=== PATIENT | female | born 1955 | race Caucasian/White ===

== ENCOUNTER 2017-02-04 15:52 | Emergency (ER) | payer OTHER ==
[~2017-02-04] VITALS: Ht 157.5 cm; Wt 93.2 kg
[2017-02-04] MEDS ORDERED: NOVOINJ3 (16:02)
[2017-02-04] MEDS ORDERED: ATEN50TA2 (16:02)
[2017-02-04] MEDS ORDERED: LISI20TA3 (16:02)
[2017-02-04] MEDS ORDERED: INSUH10VL (16:02)
[2017-02-04] MEDS ORDERED: GLYB5TA (16:02)
[2017-02-04] MEDS ORDERED: TOUJ1.2I (16:02)
[2017-02-04 17:12] LABS: BASO # 0.1 K/mm3 (0.0-0.2); BASO % 0.7 % (0.0-1.0); EOS # 0.2 K/mm3 (0.0-0.50); EOS % 2.3 % (0.0-3.0); LARGE UNSTAINED CELL # 0.2 K/mm3 (0.0-0.4); LARGE UNSTAINED CELL % 1.7 % (0.0-4.0); LYMPH # 2.1 K/mm3 (1.5-4.5); MEAN CORPUSCULAR HEMOGLOBIN 29.6 pg (27.0-33.0); MEAN CORPUSCULAR HGB CONC 33.6 g/dl (32.0-36.5); MONO # 0.5 K/mm3 (0.0-0.8); MONO % 5.1 % (0.0-5.0); NEUTROPHILS # 6.9 K/mm3 (1.8-7.7); NEUTROPHILS % 69.2 % (36.0-66.0); PLATELET COUNT, AUTOMATED 277 k/mm3 (150-450); RED CELL DISTRIBUTION WIDTH 12.4 % (11.5-14.5); WHITE BLOOD COUNT 9.9 K/mm3 (4.0-10.0)
[2017-02-04] MEDS ORDERED: LIDOCAINE 1% MDV 20ML VIAL As Ordered ONE (17:12)
[2017-02-04 17:28] LABS: ANION GAP 10 MEQ/L (8-16); BLOOD UREA NITROGEN 24 MG/DL (7-18); CALCIUM LEVEL 9.6 MG/DL (8.8-10.2); CARBON DIOXIDE LEVEL 27 MEQ/L (21-32); CHLORIDE LEVEL 98 MEQ/L (98-107); CREATININE FOR GFR 0.75 MG/DL (0.55-1.02); GLOMERULAR FILTRATION RATE > 60.0 (>45); GLUCOSE, FASTING 233 MG/DL (80-110); POTASSIUM SERUM 4.4 MEQ/L (3.5-5.1); SODIUM LEVEL 135 MEQ/L (136-145)
[2017-02-04] MEDS ORDERED: LIDOCAINE 1% MDV 20ML VIAL SC ONE (18:15)
[2017-02-04] MEDS ORDERED: CLEO300C2 PO (19:57)
[2017-02-04] MEDS ORDERED: CLINDAMYCIN 150 MG CAP PO ONE (20:00)
[2017-02-04 20:09] VITALS: BP 177/78
--- NOTE | 2017-02-05 07:50 | CR ---
DATE OF CONSULTATION: 02/04/2017 LOCATION OF CONSULTATION: Emergency department. REASON FOR CONSULTATION: Left breast abscess. HISTORY OF PRESENT ILLNESS: The patient is a pleasant 61-year-old diabetic woman who presented to the emergency department at approximately 04:00 p.m. with a complaint of swelling and redness and tenderness of the left breast. She reports that she had noted the onset of a small area of tenderness on the far medial aspect of the left breast about a week ago. This has gradually been worsening since this began. She has not had any definite fevers or chills. The discomfort has increased. She has not had any drainage. She denies any history of prior breast infection. She has had no history of recent skin infection. In the emergency department, she was evaluated with laboratory studies that showed a white count of 9.9 with a differential showing 69% neutrophils and 21% lymphocytes. She had an ultrasound obtained that showed a subcutaneous collection consistent with an abscess. I was consulted to evaluate the patient and possibly drain the abscess. ALLERGIES: The patient reports an allergy to PENICILLIN. CURRENT MEDICATIONS: Include: - atenolol 50 mg by mouth daily - glyburide - insulin - lisinopril - hydrochlorothiazide - Toujeo MEDICAL HISTORY: Significant for diabetes mellitus. She is a nonsmoker. She apparently has a history of hypertension. She has hypercholesterolemia. She apparently has a history of anal cancer based on review of a previous record. SURGICAL HISTORY: Significant for dilation and curettage (D C). She has had a colonoscopy as recently as 2012. Physical exam reveals a pleasant, alert woman appearing I think older than her stated age of 61 years. She is moderately obese. Skin is warm and dry. Sclerae are anicteric. The patient is alert and oriented. Examination of the left breast reveals that at the far medial aspect of the breast is an area approximately 6 cm long x 3 cm wide of induration and inflammation. Extending laterally from this about to the area of the areola is a narrow area of mild erythema. In the medial breast, there is a small pale area about 2 cm in diameter at the medial most part of her area of induration. There is no imminent skin breakdown evident. The area is tender. Laboratory study is as noted previously. She had a basic medical profile that showed a glucose of 233. The ultrasound was consistent with an abscess. IMPRESSION: Left breast abscess. PLAN: The patient was counseled for incision and drainage of her abscess. She was counseled that she would have a definite small scar. I advised her that this was necessary to prevent progression of her infection. There is a small risk of bleeding, continued infection, or adverse reaction to local anesthesia. She desires to proceed. The area of the breast was therefore prepped with Betadine and local anesthesia was achieved with 1% Xylocaine. An approximately 3 cm transverse incision was made and deepened into the subcutaneous tissues. A large amount of purulent fluid with some blood was released. At the medial most extent of the infection, there was some debris suggestive of a ruptured epidermal inclusion cyst. Much of the debris was removed but the cyst wall was not completely resected. Once the abscess had been nicely drained, the cavity was wicked with some Betadine gauze and a bulky bandage was applied. A Culturette was obtained from the wound. The patient tolerated the procedure well. She was instructed in local wound care. I discussed with the PA in the minor treatment area that the patient should be discharged home on some antibiotics. I advised the patient to remove the gauze wick in the morning in the shower and then to continue to shower the wound daily and to wash with soap and water and apply a dry dressing. She should follow up in my office in about a week for a wound check. JOHN
--- NOTE | 2017-02-05 09:29 | REP ---
FOCUSED LEFT BREAST SONOGRAPHY: HISTORY: Question abscess. FINDINGS: Scanning in the red palpable area at 10-o'clock position in the left breast demonstrates a complex fluid collection measuring 4.6 x 2.2 x 3.0 cm compatible with abscess. IMPRESSION: Hypoechoic fluid collection compatible with abscess left breast 4.6 cm in greatest diameter. Signed by Jovanny Boggs MD 02/05/2017 04:01 P
== END 2017-02-04 20:14 | disposition home or self-care (01) ==
LOC: M ED 15:52
DX: N61.1 Abscess of the breast and nipple (principal); B96.89 Other specified bacterial agents as the cause of diseases classified elsewhere; I10 Essential (primary) hypertension; F41.9 Anxiety disorder, unspecified; E11.9 Type 2 diabetes mellitus without complications; Z79.4 Long term (current) use of insulin; Z79.899 Other long term (current) drug therapy; Z88.0 Allergy status to penicillin; Z85.038 Personal history of other malignant neoplasm of large intestine

== ENCOUNTER 2018-01-18 22:05 | Emergency (ER) | payer OTHER ==
[2018-01-19] MEDS ORDERED: NAPROXEN 250 MG TAB PO
[2018-01-19] MEDS ORDERED: METHOCARBAMOL 500 MG TAB PO
== END 2018-01-19 00:27 | disposition home or self-care (01) ==
LOC: M ED 22:05
DX: S09.90XA Unspecified injury of head, initial encounter (principal); S40.021A Contusion of right upper arm, initial encounter; S50.11XA Contusion of right forearm, initial encounter; S80.01XA Contusion of right knee, initial encounter; W01.198A Fall on same level from slipping, tripping and stumbling with subsequent striking against other object, initial encounter; Y92.89 Other specified places as the place of occurrence of the external cause; E11.9 Type 2 diabetes mellitus without complications; I10 Essential (primary) hypertension; Z79.4 Long term (current) use of insulin; Z79.899 Other long term (current) drug therapy; Z87.891 Personal history of nicotine dependence; Z88.0 Allergy status to penicillin; Z88.8 Allergy status to other drugs, medicaments and biological substances
CPT/HCPCS: 70450

== ENCOUNTER 2018-12-15 16:42 | Emergency (ER) | payer OTHER ==
[~2018-12-15] VITALS: Ht 157.5 cm; Wt 98.1 kg
[~2018-12-15 16:42] MED LIST: ATEN50TA2 PO; CLEO300C2 PO; GLYB5TA PO; INSUH10VL; LISI20TA3 PO; NAPR-837 PO; NOVOINJ3; ROBA500T PO; TOUJ1.2I
[2018-12-15 18:18] LABS: INFLUENZA A AMPLIFICATION NEGATIVE (NEGATIVE); INFLUENZA B AMPLIFICATION NEGATIVE (NEGATIVE)
--- NOTE | 2018-12-15 19:05 | REP ---
Clinical: Cough and shortness of breath. Technique: PA and lateral. Comparison: 07/04/2008. Findings: Mediastinum and cardiac silhouette are normal. No focal consolidation. No effusion. No pneumothorax. Trace basilar atelectasis cannot be excluded. Skeletal structures are intact. Impression: No focal consolidation. Electronically Signed by Elias Black MD 12/15/2018 06:57 P
[2018-12-15] MEDS ORDERED: TESS100C PO (19:42)
[2018-12-15] MEDS ORDERED: MUCI600T31 PO (19:42)
[2018-12-15] MEDS ORDERED: ERYT1OIN26 OP (19:42)
[2018-12-15] MEDS ORDERED: ERYTHROMYCIN OPHTH OINT OU ONE (19:45)
[2018-12-15] MEDS ORDERED: BENZONATATE 100 MG CAP PO ONE (19:45)
[2018-12-15 19:58] VITALS: BP 188/79
[2018-12-15] MEDS ORDERED: guaiFENesin ER 600 MG TAB PO SCH (21:00)
== END 2018-12-15 20:12 | disposition home or self-care (01) ==
LOC: M ED 16:42
DX: J40 Bronchitis, not specified as acute or chronic (principal); H10.9 Unspecified conjunctivitis; E11.9 Type 2 diabetes mellitus without complications; I10 Essential (primary) hypertension; F41.9 Anxiety disorder, unspecified; Z79.899 Other long term (current) drug therapy; Z79.82 Long term (current) use of aspirin; Z79.4 Long term (current) use of insulin; Z88.0 Allergy status to penicillin; Z88.8 Allergy status to other drugs, medicaments and biological substances

== ENCOUNTER 2018-12-19 12:00 | Inpatient (IN) | payer OTHER ==
[~2018-12-19] VITALS: Ht 157.5 cm; Wt 92.6 kg
[~2018-12-19 12:00] MED LIST changes: +ERYT1OIN26 OP; +MUCI600T31 PO; +TESS100C PO
[2018-12-19] MEDS ORDERED: DOCU-129 PO (12:27)
[2018-12-19] MEDS ORDERED: DOXY-350 PO (12:27)
[2018-12-19] MEDS ORDERED: ASPI81TA26 PO (12:27)
[2018-12-19] MEDS ORDERED: NS IV ONE (12:45)
[2018-12-19] MEDS ORDERED: DILUENT IV ONE (12:45)
[2018-12-19 12:59] LABS: VENOUS BASE EXCESS 4.2 (-2.0-2.0); VENOUS HCO3 33.1 MEQ/L (23.0-27.0); VENOUS PARTIAL PRESSURE CO2 71.8 mmHg (38.0-50.0); VENOUS PH 7.282 UNITS (7.330-7.430); VENOUS STANDARD HCO3 27.4 MEQ/L; VENOUS TOTAL CO2 35.3 MEQ/L (24.0-28.0)
[2018-12-19 13:05] LABS: HEMATOCRIT 39.8 % (36.0-47.0); HEMOGLOBIN 12.4 g/dl (12.0-15.5); MEAN CORPUSCULAR HEMOGLOBIN 28.5 pg (27.0-33.0); MEAN CORPUSCULAR HGB CONC 31.2 g/dl (32.0-36.5); MEAN CORPUSCULAR VOLUME 91.5 fl (80.0-96.0); PLATELET COUNT, AUTOMATED 307 10^3/uL (150-450); RED BLOOD COUNT 4.35 10^6/uL (4.00-5.40); WHITE BLOOD COUNT 9.5 10^3/uL (4.0-10.0)
--- NOTE | 2018-12-19 13:14 | REP ---
Portable chest x-ray: Single view. History: Diabetic ketoacidosis. Comparison study: December 15, 2018. Findings: Today's radiograph is exposed at a somewhat lesser level of inspiration. There is a large skin fold projecting over the right chest. The lungs are symmetrically aerated. No infiltrate is seen. No pleural effusion is noted. Impression: Low level of inspiration. No acute disease. Electronically Signed by Jovanny Boggs MD 12/19/2018 01:06 P
[2018-12-19] MEDS ORDERED: DOCU100C17 PO (13:21)
[2018-12-19] MEDS ORDERED: DIMEELX PO (13:21)
[2018-12-19] MEDS ORDERED: BASA100I SC (13:21)
[2018-12-19] MEDS ORDERED: ACET-683 PO (13:21)
[2018-12-19] MEDS ORDERED: ERYT1OIN26 OU (13:21)
[2018-12-19] MEDS ORDERED: MUCI600T31 PO (13:21)
[2018-12-19] MEDS ORDERED: ADME100I SC (13:21)
[2018-12-19] MEDS ORDERED: DOXY100C PO (13:21)
[2018-12-19 13:33] LABS: ATYPICAL LYMPH 1 % (0-5); BASOPHILS 2 % (0-4); EOSINOPHILS 1 % (0-5); LYMPHOCYTES 26 % (16-52); METAMYELOCYTES 3 % (0-0); MONOCYTES 4 % (0-8); MYELOCYTES 1 % (0-0); NEUTROPHILS 61 % (35-75); PLATELET ESTIMATE NORMAL (NORMAL)
[2018-12-19 13:35] LABS: ACETONE/KETONE 1.76 MG/DL (<2.81); ALBUMIN 2.9 GM/DL (3.2-5.2); ALT/SGPT 23 U/L (12-78); BILIRUBIN,DIRECT 0.1 MG/DL (0.0-0.2); BILIRUBIN,TOTAL 0.3 MG/DL (0.2-1.0); BLOOD UREA NITROGEN 20 MG/DL (7-18); CALCIUM LEVEL 9.1 MG/DL (8.8-10.2); CARBON DIOXIDE LEVEL 34 MEQ/L (21-32); CHLORIDE LEVEL 97 MEQ/L (98-107); CPK CREATINE PHOSPHOKINASE 89 U/L (26-192); CREATININE FOR GFR 0.59 MG/DL (0.55-1.30); ETHYL ALCOHOL (ETHANOL) < 0.003 % (0.000-0.010); GLOMERULAR FILTRATION RATE > 60.0 (>45); GLUCOSE, FASTING 117 MG/DL (70-100); LIPASE 151 U/L (73-393); MAGNESIUM LEVEL 1.9 MG/DL (1.8-2.4); MB/CK RELATIVE INDEX 1.57 (< OR =4); SODIUM LEVEL 138 MEQ/L (136-145); TOTAL PROTEIN 7.5 GM/DL (6.4-8.2); TROPONIN I < 0.02 NG/ML (< 0.10)
[2018-12-19 13:42] LABS: HEMOGLOBIN A1c 9.3 %; OSMOLALITY SERUM 297 MOSM/KG (280-301)
[2018-12-19 14:25] LABS: AMPHETAMINES LEVEL URINE NEGATIVE (NEGATIVE); BARBITURATES URINE NEGATIVE (NEGATIVE); BENZODIAZEPINES URINE NEGATIVE (NEGATIVE); CANNABINOIDS URINE NEGATIVE (NEGATIVE); COCAINE METABOLITE URINE NEGATIVE (NEGATIVE); METHADONE URINE NEGATIVE (NEGATIVE); OPIATES URINE NEGATIVE (NEGATIVE); PHENCYCLIDINE URINE NEGATIVE (NEGATIVE)
[2018-12-19] MEDS ORDERED: guaiFENesin DM LIQ 10ML UD PO PRN (16:00)
[2018-12-19] MEDS ORDERED: GLUCAGON FOR INJ 1 MG VIAL (J1610) SC PRN (16:00)
[2018-12-19] MEDS ORDERED: DOCUSATE SODIUM 100 MG CAP PO PRN (16:00)
[2018-12-19] MEDS ORDERED: GLUCOSE 4 GM CHEW TABLET PO PRN (16:00)
[2018-12-19] MEDS ORDERED: DEXTROSE 50% 50 ML SYRINGE IV PRN (16:00)
--- NOTE | 2018-12-19 16:19 | HPEPDOC ---
General Date of Admission December 19, 2018 at 14:55 Date of Service: December 19, 2018 Chief Complaint The patient is a 63-year-old female admitted with a reason for visit of Acute Metabolic Encephalopathy Due To Hypoglycemia. Source: Patient, Other (Friends) History of Present Illness Patient is a 63-year-old female with a history of diabetes mellitus type 2 on home insulin long-term who presents to the hospital for concerns regarding altered mentation as well as low fingerstick glucose. The patient reports her blood glucometer has not been working for a while now. She has continued to take her home Basaglar insulin as well as Admalog insulin - she reports she usually takes 8 units of the long-acting and 10-12 units before meals of the short- acting insulin. She reports she has been taking the short-acting insulin based on how she feels as the glucometer has not been working. The patient has been dealing with an upper respiratory infection ongoing for about 10 days. The patient was seen in the emergency room on 12/15/18at that time she was diagnosed as having bronchitis as well as bacterial conjunctivitis and discharged home on oral doxycycline as well as erythromycin eye ointment. The patient reports that her appetite has not been good secondary to the infection. She ate about 50% of her meal last night. She reports shortness of breath related to the bronchitis associated with cough productive of thick whitish/yellowish/greenish sputum and also reports associated low-grade fevers, chills and sweats but no chest pain. She does have history of irritable bowel syndrome and has been having more of the diarrhea recently. She alternates between diarrhea and constipation. This morning, her friend reports that the patient was okay when she saw her at 8 AM. Hour 15 minutes later, the patient had reported some shortness of breath related to her bronchitis. The friend noticed that the patient was acting strange and her eyes were "not focusing well". Urine concerns regarding this, the friend had called another friend Nimo who is also a nurse. Nimo came over and assess the patient and recommended that the patient come to the hospital for further evaluation. The patient had a hard time changing her clothes to come to the hospital. Thereafter, EMS was called - the friend reports that the patient's fingerstick was 53 when seen by EMS. She was given some crackers with peanut butter and jelly as well as some juice. She was thereafter brought to the ER. In the ER, the patient had a blood glucose of 117, but a rectal temperature of 91F. The patient was started on a ame hugger and given IV hydration. Repeat fingerstick was better. The patient's mentation improved and seems to be back to baseline. No obvious was of infection was identified after workup in the ER. Admission was requested for further evaluation and management. Home Medications Scheduled Aspirin (Aspirin EC) 81 Mg Tablet.dr, 81 MG PO DAILY, (Reported) Atenolol (Atenolol) 50 Mg Tab, 50 MG PO DAILY, (Reported) Doxycycline Hyclate (Doxycycline Hyclate) 100 Mg Capsule, 100 MG PO BID, (Reported) FILLED 12/17 FOR 10 DAYS Erythromycin Base (Erythromycin) 1 Gm Oint...g., 1 APLCT OU BID, (Reported) STARTED 12/16 FOR 7 DAYS Glyburide (Glyburide) 5 Mg Tab, 5 MG PO BID, (Reported) Guaifenesin (Mucinex) 600 Mg Tab.er.12h, 600 MG PO BID, (Reported) Insulin Glargine,Hum.rec.anlog (Basaglar Kwikpen U-100) 100 Unit/1 Ml Insuln.pen, 80 UNIT SC DAILY, (Reported) Insulin Lispro (Admelog) 100 Unit/1 Ml Vial, 1 DOSE SC AC, (Reported) PER SLIDING SCALE Lisinopril/Hydrochlorothiazide (Lisinopril-Hctz 20-25 mg Tab) 1 Tab Tab, 1 TAB PO DAILY, (Reported) Scheduled PRN Acetaminophen (Acetaminophen) 500 Mg Tablet, 1,000 MG PO Q6H PRN for PAIN, (Reported) Brompheniram/Phenylephrine/Dm (Dimetapp Cold-Cough Liquid) 118 Ml Solution, 1 DOSE PO Q6H PRN for COUGH, (Reported) Docusate Sodium (Docusate Sodium) 100 Mg Capsule, 100 MG PO DAILY PRN for CONSTIPATION, (Reported) Allergies Coded Allergies: Penicillins (Verified Allergy, Mild, 12/15/18) rash gemfibrozil (Verified Adverse Reaction, Mild, 12/15/18) feet swelling Past Medical History Medical History Hypertension, hyperlipidemia, obesity, diabetes mellitus type 2, left breast abscess in 2017, bacterial conjunctivitis, viral bronchitis, right arm contusion, previous closed head injury in December 2017, anxiety, irritable bowel syndrome, ventral hernia, anal cancer status post radiation and chemotherapy over 5 years ago now resolved Surgical History D&C Family History Mom had breast cancer, lymphoma, diabetes mellitus and hypertension; dad had diabetes and hypertension Social History * Smoker: Denies Alcohol: occationally Drugs: denies Has a cane and walker to ambulate. Lives with a friend. A-FIB/CHADSVASC A-FIB History Current/History of A-Fib/PAF?: No Review of Systems Other systems Negative for 10 systems except as noted under history of present illness Physical Examination General Exam: Positive: Alert, Cooperative, No Acute Distress Eye Exam: Positive: PERRLA ENT Exam: Positive: Mucous membr. moist/pink Chest Exam: Positive: Clear to auscultation, Normal air movement; Negative: Rales, Rhonchi, Wheezing Heart Exam: Positive: Rate Normal, Regular Rhythm, Normal S1, Normal S2 Abdomen Exam: Positive: Soft; Negative: Tenderness Extremity Exam: Positive: Other (bilateral lower extremity 1+ pitting edema) Skin Exam: Negative: Rash Neuro Exam: Positive: Other (awake, alert, oriented 3. Cranial nerves II12 intact. Intact [id number] test bilaterally. No pronator drift. Strength 5 over 5 in bilateral upper and lower extremities. Intact fine touch bilaterally. Gait was not tested.) Psych Exam: Positive: Mental status NL Vital Signs Vital Signs Date Time Temp Pulse Resp B/P (MAP) Pulse Ox O2 Delivery O2 Flow Rate FiO2 12/19/18 14:35 94.8 152/65 (94) 12/19/18 14:31 54 98 12/19/18 12:20 16 Room Air Laboratory Data Labs 24H Laboratory Tests 2 12/19/18 12:46: Immature Granulocyte % (Auto) , Nucleated Red Blood Cells % (auto) 0.0, Neutrophils 61, Band Neutrophils 1, Lymphocytes (Manual) 26, Monocytes (Manual) 4, Eosinophils (Manual) 1, Basophils (Manual) 2, Metamyelocytes 3H, Myelocytes 1H, Atypical Lymphocytes 1, Platelet Estimate NORMAL, Red Blood Cell Morphology NORMAL, Urine Color YELLOW, Urine Appearance CLEAR, Urine pH 5.0, Urine Specific [place] 1.012, Urine Protein 3+H, Urine Glucose (UA) NEGATIVE, Urine Ketones NEGATIVE, Urine Blood NEGATIVE, Urine Nitrite NEGATIVE, Urine Bilirubin NEGATIVE, Urine Urobilinogen 0.2, Urine Leukocyte Esterase NEGATIVE, Urine WBC (Auto) 3, Urine RBC (Auto) 5H, Urine Hyaline Casts (Auto) 5, Urine Bacteria (Auto) NEGATIVE, Urine Squamous Epithelial Cells 0, Urine Amorphous Sediment SMALLH, Urine Mucus (Auto) SMALL, Urine Sperm (Auto) , Blood Gas Bicarbonate Standard 27.4, Venous Blood pH 7.282L, Venous Blood Partial Pressure CO2 71.8H, Venous Blood Partial Pressure O2 38.0, Venous Blood Total Carbon Dioxide 35.3H, Venous Blood HCO3 33.1H, Venous Blood Oxygen Saturation 63.0, Venous Blood Base Excess 4.2H, Anion Gap 7L, Glomerular Filtration Rate > 60.0, Estimated Mean Plasma Glucose 220H, Hemoglobin A1c 9.3, Osmolality 297, Lactic Acid Level 1.0, Calcium Level 9.1, Magnesium Level 1.9, Aspartate Amino Transf (AST/SGOT) 27, Alanine Aminotransferase (ALT/SGPT) 23, Alkaline Phosphatase 247H, Total Bilirubin 0.3, Direct Bilirubin 0.1, Ammonia < 10, Total Creatine Kinase 89, Creatine Kinase MB 1.0, Creatine Kinase MB Relative Index 1.57, Troponin I < 0.02, Total Protein 7.5, Albumin 2.9L, Albumin/Globulin Ratio 0.63L, Lipase 151, Thyroid Stimulating Hormone (TSH) 2.970, Urine Amphetamines Screen NEGATIVE, Urine Benzodiazepines Screen NEGATIVE, Urine Opiates Screen NEGATIVE, Urine Methadone Screen NEGATIVE, Urine Barbiturates Screen NEGATIVE, Urine Phen cyclidine Screen NEGATIVE, Urine Cocaine Metabolite Screen NEGATIVE, Urine Cannabinoids Screen NEGATIVE, Ethyl Alcohol Level < 0.003, B-Hydroxybutyrate 1.76 12/19/18 12:54: Bedside Glucose (Misc Panel) 124H CBC/BMP Laboratory Tests 12/19/18 12:46 Red Blood Count 4.35, Mean Corpuscular Volume 91.5, Mean Corpuscular Hemoglobin 28.5, Mean Corpuscular Hemoglobin Concent 31.2 L, Red Cell Distribution Width 12.0 Microbiology Microbiology 12/19/18 Blood Culture, Received Pending 12/19/18 Blood Culture, Received Pending 12/19/18 Gastrointestinal Tract Panel (PCR), Received Pending RAD Interpretation STUDY: CXR (no acute infiltrates/no acute findings) Assessment/Plan Poor lady EKG personally reviewedshows sinus bradycardia and, QTC prolonged at 526 ms Acute metabolic encephalopathy secondary to hypoglycemia in setting of diabetes mellitus type 2 on long-term insulin: -As noted, patient's glucometer had not been working but patient has still been taking both long-acting and short-acting insulin without monitoring fingersticks -this likely caused the problem with hypoglycemia in setting of decreased appetite in setting of upper respiratory infection -Hold Basaglar for now -Sliding scale insulin alone -Hold glyburide -Fingersticks are doing better -Patient has been ordered oral diet -Monitor fingersticks every 1 hour for 2 times than every 2 hours for 2 times than before meals at bedtime -Case management/social work consultation to ensure patient has a glucometer and also to assess regarding patient's home safety Severe hyperthermia: -Rectal temperature was 91F on presentation -Improving with Ame gross Hypertension: -Continue lisinopril/HCTZ with holding parameters Acute bronchitis: -Continue doxycyclinepatient had 2 days treatment. Continue 3 more days. -Continue when necessary guaifenesin Acute bacterial conjunctivitis: -Continue ophthalmic erythromycin eye ointment for 5 more days to finish 1 week treatment Edema in lower extremities: -Check echocardiogram Bradycardia secondary to hypothermia: -Improved QTC prolongation: -Potassium and magnesium were normal. Monitor on telemetry. Recheck in a.m. - EKG ordered for morning Generalized weakness: -PT/OT evaluation IBS: -When necessary docusate DVT prophylaxis: -Enoxaparin CODE STATUS: -Full code per my discussion with the patient although she does not wish for prolonged support but his acute short-term life support. Disposition: -Admit to ICU. Anticipated length of stay more than 2 midnights. Anticipate eventual discharge home once medically stable. Plan / VTE VTE Prophylaxis Ordered?: Yes CARLOTA HENAO MD December 19, 2018 16:19
[2018-12-19] MEDS: HumaLOG INSULIN (NovoLOG) PER UNIT SC SCH ×2 (17:30→20:29)
[2018-12-19 18:43] VITALS: BP 122/91
[2018-12-19 20:00] VITALS: BP 174/82
[2018-12-19] MEDS: guaiFENesin ER 600 MG TAB PO SCH (20:28)
[2018-12-19] MEDS: ERYTHROMYCIN OPHTH OINT OU SCH (20:28)
[2018-12-19] MEDS: DOXYCYCLINE HYCLATE 100 MG TAB PO SCH (20:28)
[2018-12-19] MEDS: ENOXAPARIN 40 MG/0.4 ML SYRINGE (J1650) SC SCH (20:29)
--- NOTE | 2018-12-19 22:30 | ECGEPIP ---
[facility] - ED Test Date: 2018-12-19 Pat Name: OXANA MCADAMS Department: Room: - Gender: Female [employer] Salesperson: INDRA : 1955 Requested By: ROBERT Geller Order Number: [id number] Reading MD: Robles Pearce Measurements Intervals [place] Rate: 49 P: 70 IN: 160 QRS: QRSD: 102 T: 37 QT: 556 QTc: 504 Interpretive Statements SINUS BRADYCARDIA MODERATE INTRAVENTRICULAR CONDUCTION DELAY POOR R WAVE PROGRESSION NO PRIORS FOR COMPARISON PROLONGED QT INTERVAL Electronically Signed on 12-19-2018 22:29:37 EDT by Robles Pearce
[2018-12-20] VITALS: BP 136/86
[2018-12-20] MEDS ORDERED: hydroCHLOROthiazide 25 MG TAB PO ONE ×2 (01:45→09:00)
[2018-12-20] MEDS ORDERED: LISINOPRIL 20 MG TAB PO ONE (01:45)
[2018-12-20 03:30] VITALS: BP 142/68
[2018-12-20 04:00] LABS: HEMATOCRIT 35.3 % (36.0-47.0); HEMOGLOBIN 11.1 g/dl (12.0-15.5); MEAN CORPUSCULAR HEMOGLOBIN 28.6 pg (27.0-33.0); MEAN CORPUSCULAR HGB CONC 31.4 g/dl (32.0-36.5); PLATELET COUNT, AUTOMATED 297 10^3/uL (150-450); RED BLOOD COUNT 3.88 10^6/uL (4.00-5.40); WHITE BLOOD COUNT 8.4 10^3/uL (4.0-10.0)
[2018-12-20 04:26] LABS: ALBUMIN 2.2 GM/DL (3.2-5.2); ALT/SGPT 19 U/L (12-78); BILIRUBIN,TOTAL 0.2 MG/DL (0.2-1.0); BLOOD UREA NITROGEN 15 MG/DL (7-18); CALCIUM LEVEL 8.7 MG/DL (8.8-10.2); CARBON DIOXIDE LEVEL 32 MEQ/L (21-32); CHLORIDE LEVEL 105 MEQ/L (98-107); CREATININE FOR GFR 0.53 MG/DL (0.55-1.30); GLOMERULAR FILTRATION RATE > 60.0 (>45); GLUCOSE, FASTING 127 MG/DL (70-100); MAGNESIUM LEVEL 1.8 MG/DL (1.8-2.4); POTASSIUM SERUM 3.9 MEQ/L (3.5-5.1); SODIUM LEVEL 143 MEQ/L (136-145); TOTAL PROTEIN 6.8 GM/DL (6.4-8.2)
[2018-12-20 06:00] VITALS: BP 138/74
[2018-12-20] MEDS: HumaLOG INSULIN (NovoLOG) PER UNIT SC SCH ×4 (07:30→20:30)
[2018-12-20] MEDS: ASPIRIN 81 MG ENTERIC TAB PO SCH (09:29)
[2018-12-20] MEDS: DOXYCYCLINE HYCLATE 100 MG TAB PO SCH ×2 (09:29→20:25)
[2018-12-20] MEDS: guaiFENesin ER 600 MG TAB PO SCH ×2 (09:29→20:25)
[2018-12-20] MEDS: LISINOPRIL 20 MG TAB PO SCH (09:30)
[2018-12-20] MEDS: ATENOLOL 50 MG TAB PO SCH (09:30)
[2018-12-20] MEDS: ERYTHROMYCIN OPHTH OINT OU SCH ×2 (09:31→20:26)
[2018-12-20] MEDS ORDERED: **hydrALAZINE HCL** 25 MG TAB PO PRN (10:00)
[2018-12-20] MEDS: LEVEMIR (INSULIN DETEMIR) 1 UNITS/0.01ML SC SCH (10:55)
[2018-12-20 14:00] VITALS: BP 141/64
[2018-12-20] MEDS: ACETAMINOPHEN 500 MG TAB PO PRN (14:47)
--- NOTE | 2018-12-20 16:35 | IPNPDOC ---
Subjective Date Seen The patient was seen on 12/20/18. Subjective Chief Complaint/HPI Altered mentation/acute metabolic encephalopathy secondary to hypoglycemia, hypothermia Events since last encounter The patient reports she is feeling better today. She was up in the chair when I saw him earlier this morning. Reports her appetite is much better as wellate most of her breakfast. Denies any problems with chest pressure or shortness of breath. No nausea or vomiting. Reports her cough is improving although still has some cough related to her recent bronchitis. Denies abdominal pain. No problems with urinationdoes report some persistent diarrhea still - reports she had about 5 bowel movements that were loose yesterdayreports while she does have several loose bowel movements related to her IBS, this is a little more than usual. No blood in her stools. Objective Physical Examination General Exam: Positive: Alert, Cooperative, No Acute Distress, Other (sitting up in chair) Eye Exam: Positive: PERRLA ENT Exam: Positive: Mucous membr. moist/pink Chest Exam: Positive: Clear to auscultation, Normal air movement; Negative: Rales, Rhonchi, Wheezing Heart Exam: Positive: Rate Normal, Regular Rhythm, Normal S1, Normal S2 Abdomen Exam: Positive: Soft; Negative: Tenderness Extremity Exam: Positive: Edema (bilateral lower extremity 1+ pitting edema) Neuro Exam: Positive: Other (awake, alert, answering questions appropriately and moving all 4 extremities) Psych Exam: Positive: Mental status NL Assessment /Plan Assessment Acute metabolic encephalopathy secondary to hypoglycemia in setting of diabetes mellitus type 2 on long-term insulin: -Patient's glucometer had not been working but patient has still been taking both long-acting and short-acting insulin without monitoring fingersticks -in addition, patient's appetite was less related to acute bronchitisthe combination likely resulted in the hypoglycemia and hypothermia. -Appetite is better and no further hypoglycemia. Levemir at 35 units daily to start off with -Monitor fingersticks todayif running in the high 200s to 300s, plan will be to give her an additional dose of 35 units of Levemir and switch to 7080 units of Levemir starting tomorrow based on her fingersticks. At baseline, patient takes 80 units of basal insulin. -Continue sliding-scale insulin -Hold glyburide -Continue carbohydrate controlled diet -Case management/social work consultation to ensure patient has a glucometer and also to assess regarding patient's home safety Severe hypothermia: -Rectal temperature was 91F on presentation -Improving with Margarito hugger -Temperature is now normal Hypertension: -Continue lisinopril/HCTZ with holding parameters Acute bronchitis: -Continue doxycyclinepatient had 3 days treatment. Continue 2 more days. -Continue prn guaifenesin Acute bacterial conjunctivitis: -Continue ophthalmic erythromycin eye ointment for 4 more days to finish 1 week treatment Edema in lower extremities: -Check echocardiogram -Suspect edema may be related to her varicosities as well. -Ordered compression stockings Bradycardia secondary to hypothermia: -Resolved QTC prolongation: -Resolvednormal on EKG today Generalized weakness: -PT/OT evaluation IBS: -When necessary docusate - currently patient having diarrhea DVT prophylaxis: -Enoxaparin Disposition: Anticipate possible discharge home within the next 24-48 hours based on patient's fingersticks as well as clinical progression. We will also await echocardiogram and PT/OT recommendations. As noted above, patient also will require case management/elementary school social worker evaluation to ensure she has adequate diabetic supplies, glucometer as well as to ensure home safety. Plan/VTE VTE Prophylaxis Ordered?: Yes VS, I&O, 24H, Fishbone Vital Signs/I&O Vital Signs Date Time Temp Pulse Resp B/P (MAP) Pulse Ox O2 Delivery O2 Flow Rate FiO2 12/20/18 14:00 97.0 65 20 141/64 (89) 96 12/19/18 17:38 Room Air 12/19/18 17:08 2.0 I&O- Last 24 Hours up to 6 AM 12/20/18 06:00 Intake Total 3060 ml Output Total 0 ml Balance 3060 ml Laboratory Data 24H LABS Laboratory Tests 2 12/19/18 17:29: Bedside Glucose (Misc Panel) 111 12/19/18 18:37: Bedside Glucose (Misc Panel) 104 12/19/18 20:26: Bedside Glucose (Misc Panel) 114 12/20/18 00:35: Bedside Glucose (Misc Panel) 84 12/20/18 03:41: Nucleated Red Blood Cells % (auto) 0.0, Anion Gap 6L, Glomerular Filtration Rate > 60.0, Blood Urea Nitrogen 15, Creatinine 0.53L, Sodium Level 143, Potassium Level 3.9, Chloride Level 105, Carbon Dioxide Level 32, Calcium Level 8.7L, Aspartate Amino Transf (AST/SGOT) 23, Alanine Aminotransferase (ALT/SGPT) 19, Alkaline Phosphatase 177H, Total Bilirubin 0.2, Total Protein 6.8, Albumin 2.2#L, Magnesium Level 1.8, Albumin/Globulin Ratio 0.48L 12/20/18 11:58: Bedside Glucose (Misc Panel) 213H CBC/BMP Laboratory Tests 12/20/18 03:41 Red Blood Count 3.88 L, Mean Corpuscular Volume 91.0, Mean Corpuscular Hemoglobin 28.6, Mean Corpuscular Hemoglobin Concent 31.4 L, Red Cell Distribution Width 12.2, Calcium Level 8.7 L, Aspartate Amino Transf (AST/SGOT) 23, Alanine Aminotransferase (ALT/SGPT) 19, Alkaline Phosphatase 177 H, Total Bilirubin 0.2, Total Protein 6.8, Albumin 2.2 #L Microbiology Microbiology 12/19/18 Blood Culture - Preliminary, Resulted No growth after 24 hours . All specim... 12/19/18 Blood Culture - Preliminary, Resulted No growth after 24 hours . All specim... 12/19/18 Gastrointestinal Tract Panel (PCR) - Final, Complete CARLOTA HENAO MD Dec 20, 2018 16:35
[2018-12-20] MEDS: ENOXAPARIN 40 MG/0.4 ML SYRINGE (J1650) SC SCH (20:25)
[2018-12-20 22:00] VITALS: BP 142/68
[2018-12-21 06:00] VITALS: BP 138/64
[2018-12-21 06:06] LABS: HEMATOCRIT 37.4 % (36.0-47.0); HEMOGLOBIN 11.6 g/dl (12.0-15.5); MEAN CORPUSCULAR HEMOGLOBIN 27.7 pg (27.0-33.0); MEAN CORPUSCULAR VOLUME 89.3 fl (80.0-96.0); PLATELET COUNT, AUTOMATED 327 10^3/uL (150-450); RED BLOOD COUNT 4.19 10^6/uL (4.00-5.40); WHITE BLOOD COUNT 9.1 10^3/uL (4.0-10.0)
[2018-12-21 06:26] LABS: BLOOD UREA NITROGEN 20 MG/DL (7-18); CALCIUM LEVEL 9.4 MG/DL (8.8-10.2); CARBON DIOXIDE LEVEL 30 MEQ/L (21-32); CHLORIDE LEVEL 103 MEQ/L (98-107); CREATININE FOR GFR 0.68 MG/DL (0.55-1.30); GLOMERULAR FILTRATION RATE > 60.0 (>45); GLUCOSE, FASTING 164 MG/DL (70-100); MAGNESIUM LEVEL 1.7 MG/DL (1.8-2.4); PHOSPHORUS LEVEL 4.3 MG/DL (2.5-4.9); POTASSIUM SERUM 4.1 MEQ/L (3.5-5.1); SODIUM LEVEL 139 MEQ/L (136-145)
[2018-12-21] MEDS ORDERED: MAG SULF 1GM/100ML (MAG RUN) 1 GM in APPROPRIATE DILUENT 1 EA IV ONE (07:15)
[2018-12-21 07:25] LABS: BASOPHILS 1 % (0-4); EOSINOPHILS 4 % (0-5); LYMPHOCYTES 47 % (16-52); METAMYELOCYTES 3 % (0-0); MONOCYTES 6 % (0-8); MYELOCYTES 1 % (0-0); NEUTROPHILS 37 % (35-75)
[2018-12-21 07:27] LABS: ANISOCYTOSIS 1+; PLATELET ESTIMATE NORMAL (NORMAL); POLYCHROMASIA 1+
[2018-12-21] MEDS: ERYTHROMYCIN OPHTH OINT OU SCH ×2 (08:21→20:11)
[2018-12-21] MEDS: ASPIRIN 81 MG ENTERIC TAB PO SCH (08:21)
[2018-12-21] MEDS: guaiFENesin ER 600 MG TAB PO SCH ×2 (08:21→20:11)
[2018-12-21] MEDS: hydroCHLOROthiazide 25 MG TAB PO SCH (08:22)
[2018-12-21] MEDS: ATENOLOL 50 MG TAB PO SCH (08:22)
[2018-12-21] MEDS: DOXYCYCLINE HYCLATE 100 MG TAB PO SCH ×2 (08:22→20:11)
[2018-12-21] MEDS: LISINOPRIL 20 MG TAB PO SCH (08:22)
[2018-12-21] MEDS: HumaLOG INSULIN (NovoLOG) PER UNIT SC SCH ×4 (08:23→20:36)
[2018-12-21] MEDS: LEVEMIR (INSULIN DETEMIR) 1 UNITS/0.01ML SC SCH (08:24)
--- NOTE | 2018-12-21 10:19 | ECHO ---
DATE OF PROCEDURE: 12/20/2018 INDICATION: Edema. Height 158 cm, weight 94 kg. DIMENSIONS: IVS: 1.1 LV: 4.6 LVPW: 1.3 LA: 4.5 Aorta: 2.9 IVC: 1.9 Left atrial volume index: 38 mL per meter square Mitral E wave velocity: 107 A wave: 85 E prime septal: 7.8 E prime lateral: 9.6 FINDINGS: The study is of acceptable technical quality, especially considering patient's body habitus. Left ventricle is of normal size and systolic function with estimated ejection fraction (EF) 60-65%. Computer-generated left ventricular ejection fraction (LVEF) was 64%. Right ventricle does not appear grossly dilated and is normally contractile. Left atrium is moderately enlarged. Right atrium appears normal. Aortic valve is minimally sclerotic but has three cusps and normal mobility. Mitral, tricuspid and pulmonic valves appear normal. No pericardial effusion is noted. Inferior vena cava is towards upper limits of normal size but collapses with respiration. Aortic root appears normal. Aortic arch and abdominal aorta also appear normal based on limited views. Doppler interrogation reveals trace aortic insufficiency and no stenosis. There is mild mitral and mild tricuspid insufficiency. Calculated pulmonary artery pressure is at minimum in 30s corresponding to mild pulmonary hypertension. Pulmonic valve is functionally competent. CONCLUSIONS: 1. Study is of acceptable technical quality. 2. Normal left ventricular (LV) size with preserved LV systolic function and likely grade 2 diastolic dysfunction. 3. No hemodynamically significant valvular disease. 4. Normal central venous pressure but at least mild and possibly worse pulmonary hypertension. COMMENT: Subacute bacterial endocarditis (SBE) prophylaxis is not recommended.
--- NOTE | 2018-12-21 13:18 | ECGEPIP ---
[facility] Test Date: 2018-12-20 Pat Name: OXANA MCADAMS Department: Room: [place] [address] Gender: Female [employer]: CHILO : 1955 Requested By: CARLOTA Brice Order Number: [id number] Reading MD: Preeti Vargas Measurements Intervals [place] Rate: 75 P: 79 NC: 145 QRS: 24 QRSD: 98 T: 29 QT: 396 QTc: 443 Interpretive Statements SINUS RHYTHM SIMILAR TO 12/19/18, QT INTERVAL IS NOW SHORTER Electronically Signed on 12-21-2018 13:17:54 EDT by Preeti Vargas
--- NOTE | 2018-12-21 13:46 | IPNPDOC ---
Subjective Date Seen The patient was seen on 12/21/18. Subjective Chief Complaint/HPI The patient is a 63-year-old female admitted for acute metabolic encephalopathy secondary to hypoglycemia. The patient has a history diabetes mellitus type 2 on home insulin long-term. Her blood glucometer had not been working for a while now. She continued to take her home Basaglar insulin as well as Admalog insulin - she reports she usually takes 80 units of the long-acting and 10-12 units before meals of the short-acting insulin. She reports she has been taking the short-acting insulin based on how she feels. The patient has been dealing with an upper respiratory infection ongoing for about 10 days - she was seen in the emergency room on 12/15/18 and was diagnosed as having bronchitis as well as bacterial conjunctivitis and discharged home on oral doxycycline as well as erythromycin eye ointment. The patient reporte that her appetite had not been good secondary to the infection. The morning of presentation, the patient's friend noticed that the patient was acting strange and her eyes were "not focusing well". The patient's fingerstick was 53 when seen by EMS. She was given some crackers with peanut butter and jelly as well as some juice. She was thereafter brought to the ER. In the ER, the patient had a blood glucose of 117, but a rectal temperature of 91F. The patient was started on a ame hugger and given IV hydration. Repeat fingerstick was better. The patient's mentation improved and seems to be back to baseline. No obvious was of infection was identified after workup in the ER. Admission was requested for further evaluation and management. Events since last encounter The patient reports she is feeling better. She i staking oral intake okreports her appetite is improved. Denies feeling overtly short of breath. Still has cough associated with the bronchitis - seems to be improving as well although she still has some persistent cough. Denies any fevers/chills or sweats. No nausea or vomiting. No chest pain. No abdominal pain. Has been voiding okay and has been having bowel movements okay. Able to ambulate with assistance of walker. Objective Physical Examination General Exam: Positive: Alert, Cooperative, No Acute Distress, Other (sitting up in chair) Eye Exam: Positive: PERRLA ENT Exam: Positive: Mucous membr. moist/pink Chest Exam: Positive: Other (clear to respiration bilateral. No wheeze, rhonchi. No distress.) Heart Exam: Positive: Other (S1, S2 heard, no rubs or gallops. Regular rate, rhythm.) Abdomen Exam: Positive: Soft; Negative: Tenderness Extremity Exam: Positive: Edema (bilateral lower extremity 1+ pitting edema- unchanged) Neuro Exam: Positive: Other (awake, alert, answering questions appropriately and moving all 4 extremities) Psych Exam: Positive: Mental status NL Assessment /Plan Assessment Acute metabolic encephalopathy secondary to hypoglycemia in setting of diabetes mellitus type 2 on long-term insulin: -Patient's glucometer had not been working but patient was still taking both l don-acting and short-acting insulin without monitoring fingersticks -in addition, patient's appetite was less related to acute bronchitisthe combination likely resulted in the hypoglycemia and hypothermia. -Appetite is better and no further hypoglycemia. -Started Levemir at 35 units daily 12/20/18 morning -Fingersticks 112-178 since yesterday afternoon -I doubt patient would require the 75-80 units of Basaglar she was taking at home -Continue current dose of Levemir as well as sliding-scale insulin -Holding glyburide -Continue carbohydrate controlled diet -Case management/social work consultation has been requested to ensure patient has a glucometer and also to assess regarding patient's home safety Severe hypothermia: -Rectal temperature was 91F on presentation -Improved with Ame hugger treatment initially -Temperature is now normal Hypertension: -Continue lisinopril/HCTZ with holding parameters Acute bronchitis: -Continue doxycyclinepatient had 4 days treatment. Continue 1 more days. -Continue prn guaifenesin Acute bacterial conjunctivitis: -Continue ophthalmic erythromycin eye ointment for 3 more days to finish 1 week treatment Edema in lower extremities: -Check echocardiogram - pending -Suspect edema may be related to her varicosities as well. -Ordered compression stockings Bradycardia secondary to hypothermia: -Resolved QTC prolongation: -Resolvednormal on EKG today Generalized weakness: -PT/OT - patient has been cleared for home discharge once medically stable IBS: -When necessary docusate - currently patient having diarrhea DVT prophylaxis: -Enoxaparin Disposition: Follow-up on echocardiogram. He will also need to check with case management to ensure that patient gets a glucometer for home use. She may also benefit from home nursing as well as possibly a home safety evaluation. Anticipate possible discharge home by tomorrow. Plan/VTE VTE Prophylaxis Ordered?: Yes VS, I&O, 24H, Fishbone Vital Signs/I&O Vital Signs Date Time Temp Pulse Resp B/P (MAP) Pulse Ox O2 Delivery O2 Flow Rate FiO2 12/21/18 08:22 134/64 12/21/18 08:22 75 12/21/18 06:00 98.6 20 98 12/19/18 17:38 Room Air 12/19/18 17:08 2.0 I&O- Last 24 Hours up to 6 AM 12/21/18 06:00 Intake Total 900 ml Balance 900 ml Laboratory Data 24H LABS Laboratory Tests 2 12/20/18 16:50: Bedside Glucose (Misc Panel) 112 12/20/18 20:30: Bedside Glucose (Misc Panel) 137H 12/21/18 05:49: Immature Granulocyte % (Auto) , Nucleated Red Blood Cells % (auto) 0.0, Neutrophils 37, Band Neutrophils 1, Lymphocytes (Manual) 47, Monocytes (Manual) 6, Eosinophils (Manual) 4, Basophils (Manual) 1, Metamyelocytes 3H, Myelocytes 1H, Platelet Estimate NORMAL, Polychromasia 1+, Anisocytosis 1+, Macrocytosis 1+, Anion Gap 6L, Glomerular Filtration Rate > 60.0, Blood Urea Nitrogen 20H, Creatinine 0.68, Sodium Level 139, Potassium Level 4.1, Chloride Level 103, Carbon Dioxide Level 30, Calcium Level 9.4, Phosphorus Level 4.3, Magnesium Level 1.7L 12/21/18 11:33: Bedside Glucose (Misc Panel) 178H CBC/BMP Laboratory Tests 12/21/18 05:49 Red Blood Count 4.19, Mean Corpuscular Volume 89.3, Mean Corpuscular Hemoglobin 27.7, Mean Corpuscular Hemoglobin Concent 31.0 L, Red Cell Distribution Width 12.3, Calcium Level 9.4 Microbiology Microbiology 12/19/18 Blood Culture - Preliminary, Resulted No growth after 24 hours . All specim... 12/19/18 Blood Culture - Preliminary, Resulted No Growth after 48 hours. All Specime... 12/19/18 Gastrointestinal Tract Panel (PCR) - Final, Complete CARLOTA HENAO MD Dec 21, 2018 13:46
[2018-12-21 14:00] VITALS: BP 171/73
[2018-12-21] MEDS: ACETAMINOPHEN 500 MG TAB PO PRN (15:32)
[2018-12-21 18:00] VITALS: BP 142/56
[2018-12-21] MEDS: ENOXAPARIN 40 MG/0.4 ML SYRINGE (J1650) SC SCH (20:11)
[2018-12-21 22:00] VITALS: BP 138/64
[2018-12-22 06:00] VITALS: BP 139/57
[2018-12-22 06:05] LABS: HEMATOCRIT 33.9 % (36.0-47.0); HEMOGLOBIN 10.6 g/dl (12.0-15.5); MEAN CORPUSCULAR HEMOGLOBIN 27.8 pg (27.0-33.0); MEAN CORPUSCULAR HGB CONC 31.3 g/dl (32.0-36.5); PLATELET COUNT, AUTOMATED 290 10^3/uL (150-450); RED BLOOD COUNT 3.81 10^6/uL (4.00-5.40); WHITE BLOOD COUNT 8.3 10^3/uL (4.0-10.0)
[2018-12-22 06:36] LABS: BLOOD UREA NITROGEN 24 MG/DL (7-18); CALCIUM LEVEL 9.3 MG/DL (8.8-10.2); CARBON DIOXIDE LEVEL 28 MEQ/L (21-32); CHLORIDE LEVEL 103 MEQ/L (98-107); CREATININE FOR GFR 0.67 MG/DL (0.55-1.30); GLOMERULAR FILTRATION RATE > 60.0 (>45); GLUCOSE, FASTING 191 MG/DL (70-100); MAGNESIUM LEVEL 1.7 MG/DL (1.8-2.4); PHOSPHORUS LEVEL 4.5 MG/DL (2.5-4.9); SODIUM LEVEL 139 MEQ/L (136-145)
[2018-12-22 06:55] LABS: ATYPICAL LYMPH 1 % (0-5); EOSINOPHILS 2 % (0-5); LYMPHOCYTES 32 % (16-52); METAMYELOCYTES 2 % (0-0); MONOCYTES 7 % (0-8); MYELOCYTES 3 % (0-0); NEUTROPHILS 52 % (35-75); PLATELET ESTIMATE NORMAL (NORMAL)
[2018-12-22] MEDS ORDERED: MAG SULF 1GM/100ML (MAG RUN) 1 GM in APPROPRIATE DILUENT 1 EA IV ONE (07:30)
[2018-12-22] MEDS: HumaLOG INSULIN (NovoLOG) PER UNIT SC SCH ×2 (07:39→11:46)
[2018-12-22] MEDS: guaiFENesin ER 600 MG TAB PO SCH (08:07)
[2018-12-22] MEDS: DOXYCYCLINE HYCLATE 100 MG TAB PO SCH (08:07)
[2018-12-22] MEDS: ASPIRIN 81 MG ENTERIC TAB PO SCH (08:07)
[2018-12-22] MEDS: hydroCHLOROthiazide 25 MG TAB PO SCH (08:07)
[2018-12-22] MEDS: LISINOPRIL 20 MG TAB PO SCH (08:07)
[2018-12-22 08:08] VITALS: BP 169/75
[2018-12-22] MEDS: LEVEMIR (INSULIN DETEMIR) 1 UNITS/0.01ML SC SCH (08:08)
[2018-12-22] MEDS: ERYTHROMYCIN OPHTH OINT OU SCH (08:08)
[2018-12-22] MEDS: ATENOLOL 50 MG TAB PO SCH (08:08)
[2018-12-22] MEDS ORDERED: BLOOKIT21 XX (08:53)
[2018-12-22] MEDS ORDERED: GLUC1TES2 XX (08:53)
[2018-12-22] MEDS ORDERED: ALCOPAD25 TOP (08:53)
[2018-12-22] MEDS ORDERED: LANC30MI XX (08:53)
[2018-12-22] MEDS ORDERED: BASA100I SC (10:31)
--- NOTE | 2018-12-22 11:23 | DS.PDOC ---
Discharge Summary General Date of Admission December 19, 2018 at 14:55 Date of Discharge 12/22/2018 Discharge Summary PROCEDURES PERFORMED DURING STAY: [None]. ADMITTING DIAGNOSES / DISCHARGE DIAGNOSES: Acute metabolic encephalopathy secondary to hypoglycemia in setting of diabetes mellitus type 2 on long-term insulin Severe hypothermia Hypertension Acute bronchitis Acute bacterial conjunctivitis Edema in lower extremities Bradycardia secondary to hypothermia QTC prolongation Generalized weakness IBS DVT prophylaxis COMPLICATIONS/CHIEF COMPLAINT: Confusion HISTORY OF PRESENT ILLNESS: Patient is a 63 year old female with a PMHx of Hypertension, hyperlipidemia, obesity, diabetes mellitus type 2, left breast abscess in 2016, bacterial conjunctivitis, viral bronchitis, right arm contusion, previous closed head injury in December 2017, anxiety, irritable bowel syndrome, ventral hernia, anal cancer status post radiation and chemotherapy over 5 years ago now resolved who presented to the ER with confusion. The patient reports her blood glucometer has not been working for a while now. She has continued to take her home Basaglar insulin as well as Humolog insulin - she reports she usually takes 8 units of the long-acting and 10-12 units before meals of the short-acting insulin. She reports she has been taking the short-acting insulin based on how she feels. Patient was admitted to the hospitalist service for further evaluation / treatment. HOSPITAL COURSE: Acute metabolic encephalopathy secondary to hypoglycemia in setting of diabetes mellitus type 2 on long-term insulin: - Full resolution of confusion - Had taken insulin without measuring glucose because of dysfunctioning equip ment - Has been on adjusted dose of long acting insulin - Will discharge today with instructions to check glucose 4 times daily and sliding scale insulin s/p Severe hypothermia - likely 2/2 hypoglycemia s/p Bradycardia - likely 2/2 hypothermia Hypertension - BP better controlled - c/w lisinopril/HCTZ with holding parameters Acute bronchitis: - Will complete Doxycycline today - c/w prn guaifenesin Acute bacterial conjunctivitis: - c/w ophthalmic erythromycin eye ointment for 3 more days to finish 1 week treatment Edema in lower extremities: - ECHO 12/2018: EF 65%; G2DD, Normal CVP, Mild and possibly worse pulmonary HTN - c/w HCTZ / Lisinopril upon discharge - c/w compression stockings QTC prolongation: -Resolvednormal on EKG today IBS: - c/w Docusate PRN DVT prophylaxis - c/w Enoxaparin DISCHARGE MEDICATIONS: Please see below. ALLERGIES: Please see below. PHYSICAL EXAMINATION ON DISCHARGE: Vitals (See below) General: Lying in bed, no acute distress, comfortable, AAOx3 HEENT: NC, AT CVS: RRR, +S1S2 Lungs: Fair air entry b/l, no appreciable wheezing / rhonchi / rales Abdomen: Soft, ND, NT Extremities: Trace pitting edema, - Calf tenderness LABORATORY DATA: Please see below. ACTIVITY: [As tolerated]. DISCHARGE PLAN: Follow up with Mark Mojica Remain compliant with treatment plan and medications Return to the ER if you experience any problems DISPOSITION: Home with services DISCHARGE CONDITION: [Stable]. TIME SPENT ON DISCHARGE: 40 minutes Vital Signs/I&Os Vital Signs Date Time Temp Pulse Resp B/P (MAP) Pulse Ox O2 Delivery O2 Flow Rate FiO2 12/22/18 08:08 70 169/75 12/22/18 06:00 96.4 18 93 12/19/18 17:38 Room Air 12/19/18 17:08 2.0 I&O- Last 24 Hours up to 6 AM 12/22/18 06:00 Intake Total 1260 ml Output Total 0 ml Balance 1260 ml Laboratory Data Labs 24H Laboratory Tests 2 12/21/18 11:33: Bedside Glucose (Misc Panel) 178H 12/21/18 16:42: Bedside Glucose (Misc Panel) 207H 12/21/18 20:33: Bedside Glucose (Misc Panel) 159H 12/22/18 05:26: Immature Granulocyte % (Auto) , Nucleated Red Blood Cells % (auto) 0.0, Neutrophils 52, Band Neutrophils 1, Lymphocytes (Manual) 32, Monocytes (Manual) 7, Eosinophils (Manual) 2, Metamyelocytes 2H, Myelocytes 3H, Atypical Lymphocytes 1, Platelet Estimate NORMAL, Red Blood Cell Morphology NORMAL, Anion Gap 8, Glomerular Filtration Rate > 60.0, Blood Urea Nitrogen 24H, Creatinine 0.67, Sodium Level 139, Potassium Level 4.0, Chloride Level 103, Carbon Dioxide Level 28, Calcium Level 9.3, Phosphorus Level 4.5, Magnesium Level 1.7L CBC/BMP Laboratory Tests 12/22/18 05:26 Red Blood Count 3.81 L, Mean Corpuscular Volume 89.0, Mean Corpuscular Hemog lobin 27.8, Mean Corpuscular Hemoglobin Concent 31.3 L, Red Cell Distribution Width 12.3, Calcium Level 9.3 FSBS Laboratory Tests Test 12/21/18 11:33 12/21/18 16:42 12/21/18 20:33 Range/Units Bedside Glucose (Misc Panel) 178 207 159 80-115 MG/DL Microbiology Microbiology 12/19/18 Blood Culture - Preliminary, Resulted No Growth after 48 hours. All Specime... 12/19/18 Blood Culture - Preliminary, Resulted No Growth after 48 hours. All Specime... 12/19/18 Gastrointestinal Tract Panel (PCR) - Final, Complete Discharge Medications Scheduled Aspirin (Aspirin EC) 81 Mg Tablet.dr, 81 MG PO DAILY, (Reported) Atenolol (Atenolol) 50 Mg Tab, 50 MG PO DAILY, (Reported) Blood Sugar Diagnostic (Advanced Glucose Test Strips) 1 Each Strip, 1 STRIP XX ASDIRECTED to check glucose 4 times daily Doxycycline Hyclate (Doxycycline Hyclate) 100 Mg Capsule, 100 MG PO BID, (Reported) FILLED 12/17 FOR 10 DAYS Erythromycin Base (Erythromycin) 1 Gm Oint...g., 1 APLCT OU BID, (Reported) STARTED 12/16 FOR 7 DAYS Guaifenesin (Mucinex) 600 Mg Tab.er.12h, 600 MG PO BID, (Reported) Insulin Glargine,Hum.rec.anlog (Basaglar Kwikpen U-100) 100 Unit/1 Ml Insuln.pen, 35 UNIT SC DAILY 1 month supply; 1 PEN Insulin Lispro (Admelog) 100 Unit/1 Ml Vial, 1 DOSE SC AC, (Reported) PER SLIDING SCALE Lisinopril/Hydrochlorothiazide (Lisinopril-Hctz 20-25 mg Tab) 1 Tab Tab, 1 TAB PO DAILY, (Reported) Scheduled PRN Acetaminophen (Acetaminophen) 500 Mg Tablet, 1,000 MG PO Q6H PRN for PAIN, (Reported) Brompheniram/Phenylephrine/Dm (Dimetapp Cold-Cough Liquid) 118 Ml Solution, 1 DOSE PO Q6H PRN for COUGH, (Reported) Docusate Sodium (Docusate Sodium) 100 Mg Capsule, 100 MG PO DAILY PRN for CONSTIPATION, (Reported) Allergies Coded Allergies: Penicillins (Verified Allergy, Mild, 12/15/18) rash gemfibrozil (Verified Adverse Reaction, Mild, 12/15/18) feet swelling AZUL FRIAS MD Dec 22, 2018 11:23
== END 2018-12-22 13:33 | disposition home or self-care (01) | DRG 52 ==
LOC: M ED 12:00 → EDBD 12:00 → M ED INP 14:55 → M ICU 17:22 → M MSPAV 12-20 03:18
PROVIDERS: ADMIT Internal Medicine; ATTEND Internal Medicine
DX: G93.41 Metabolic encephalopathy (principal); E11.649 Type 2 diabetes mellitus with hypoglycemia without coma; I45.81 Long QT syndrome; K58.2 Mixed irritable bowel syndrome; I10 Essential (primary) hypertension; E78.5 Hyperlipidemia, unspecified; E66.9 Obesity, unspecified; F41.9 Anxiety disorder, unspecified; R68.0 Hypothermia, not associated with low environmental temperature; J20.9 Acute bronchitis, unspecified; H10.30 Unspecified acute conjunctivitis, unspecified eye; R00.1 Bradycardia, unspecified; R53.1 Weakness; R60.0 Localized edema; Z92.3 Personal history of irradiation; Z92.21 Personal history of antineoplastic chemotherapy; Z79.4 Long term (current) use of insulin; Z79.82 Long term (current) use of aspirin; Z88.0 Allergy status to penicillin; Z79.899 Other long term (current) drug therapy

== ENCOUNTER → 2019-08-20 | Outpatient (CLI) | payer OTHER ==
[~2019-08-20] MED LIST changes: +ACET-683 PO; +ADME100I SC; +ALCOPAD25 TOP; +ASPI81TA26 PO; +BASA100I SC; +BLOOKIT21 XX; +DIMEELX PO; +DOCU-129 PO; +DOCU100C17 PO; +DOXY-350 PO; +DOXY100C PO; +ERYT1OIN26 OU; +GLUC1TES2 XX; +LANC30MI XX; +LISI20TA20 PO; -LISI20TA3 PO
[2019-08-20 16:54] LABS: BASO % 0.4 % (0.0-1.0); EOS # 0.2 10^3/uL (0.0-0.5); EOS % 2.3 % (0.0-3.0); HEMATOCRIT 39.2 % (36.0-47.0); HEMOGLOBIN 12.2 g/dl (12.0-15.5); LYMPH # 2.1 10^3/uL (1.5-5.0); LYMPH % 23.1 % (24.0-44.0); MEAN CORPUSCULAR HEMOGLOBIN 27.5 pg (27.0-33.0); MEAN CORPUSCULAR HGB CONC 31.1 g/dl (32.0-36.5); MEAN CORPUSCULAR VOLUME 88.3 fl (80.0-96.0); MONO # 0.8 10^3/uL (0.0-0.8); MONO % 8.2 % (0.0-5.0); NEUTROPHILS # 5.9 10^3/uL (1.5-8.5); NEUTROPHILS % 64.6 % (36.0-66.0); PLATELET COUNT, AUTOMATED 260 10^3/uL (150-450); RED BLOOD COUNT 4.44 10^6/uL (4.00-5.40); WHITE BLOOD COUNT 9.2 10^3/uL (4.0-10.0)
[2019-08-20 17:12] LABS: ALBUMIN 2.9 GM/DL (3.2-5.2); ALT/SGPT 22 U/L (12-78); BILIRUBIN,TOTAL 0.4 MG/DL (0.2-1.0); BLOOD UREA NITROGEN 22 MG/DL (7-18); CALCIUM LEVEL 9.4 MG/DL (8.8-10.2); CARBON DIOXIDE LEVEL 28 MEQ/L (21-32); CHLORIDE LEVEL 100 MEQ/L (98-107); CHOLESTEROL LEVEL 279 MG/DL (<200); CHOLESTEROL RISK RATIO 6.065 (<5); CREATININE FOR GFR 0.81 MG/DL (0.55-1.30); GLOMERULAR FILTRATION RATE > 60.0 (>45); GLUCOSE, FASTING 313 MG/DL (70-100); HDL CHOLESTEROL 46 MG/DL (>40); NON-HDL-C 233 MG/DL; POTASSIUM SERUM 4.2 MEQ/L (3.5-5.1); SODIUM LEVEL 137 MEQ/L (136-145); TOTAL PROTEIN 6.9 GM/DL (6.4-8.2); TRIGLYCERIDES LEVEL 421 MG/DL (<150)
[2019-08-20 17:44] LABS: HEMOGLOBIN A1c 11.6 %
[2019-08-21 18:08] LABS: CREATININE, URINE 55.6 MG/DL
== END ==
LOC: M WUC 11:14
PROVIDERS: ATTEND Nurse Practitioner Family
DX: E11.65 Type 2 diabetes mellitus with hyperglycemia (principal)

== ENCOUNTER → 2020-05-18 | Outpatient (CLI) | payer OTHER ==
[~2020-05-18] MED LIST changes: -ERYT1OIN26 OP; -ERYT1OIN26 OU; +ERYT5OIN25 OP; +ERYT5OIN25 OU
[2020-05-18 16:51] LABS: BASO % 0.5 % (0.0-1.0); EOS # 0.2 10^3/uL (0.0-0.5); EOS % 2.5 % (0.0-3.0); HEMATOCRIT 43.1 % (36.0-47.0); HEMOGLOBIN 13.3 g/dl (12.0-15.5); LYMPH % 36.9 % (24.0-44.0); MEAN CORPUSCULAR HEMOGLOBIN 27.5 pg (27.0-33.0); MEAN CORPUSCULAR HGB CONC 30.9 g/dl (32.0-36.5); MONO # 0.6 10^3/uL (0.0-0.8); MONO % 7.1 % (0.0-5.0); NEUTROPHILS # 4.2 10^3/uL (1.5-8.5); PLATELET COUNT, AUTOMATED 292 10^3/uL (150-450); RED BLOOD COUNT 4.84 10^6/uL (4.00-5.40)
[2020-05-18 17:08] LABS: ALBUMIN 3.3 GM/DL (3.2-5.2); ALT/SGPT 17 U/L (12-78); BILIRUBIN,TOTAL 0.3 MG/DL (0.2-1.0); BLOOD UREA NITROGEN 25 MG/DL (7-18); CALCIUM LEVEL 9.9 MG/DL (8.8-10.2); CARBON DIOXIDE LEVEL 32 MEQ/L (21-32); CHLORIDE LEVEL 100 MEQ/L (98-107); CHOLESTEROL LEVEL 318 MG/DL (<200); CHOLESTEROL RISK RATIO 6.625 (<5); GLOMERULAR FILTRATION RATE > 60.0 (>45); GLUCOSE, FASTING 86 MG/DL (70-100); HDL CHOLESTEROL 48 MG/DL (>40); NON-HDL-C 270 MG/DL; POTASSIUM SERUM 4.6 MEQ/L (3.5-5.1); SODIUM LEVEL 138 MEQ/L (136-145); TOTAL PROTEIN 7.2 GM/DL (6.4-8.2); TRIGLYCERIDES LEVEL 618 MG/DL (<150)
[2020-05-18 17:18] LABS: HEMOGLOBIN A1c 6.7 %
== END | disposition home or self-care (01) ==
LOC: M WUC 14:07
PROVIDERS: ATTEND Nurse Practitioner Family
DX: E11.65 Type 2 diabetes mellitus with hyperglycemia (principal)

== ENCOUNTER → 2020-05-20 | Outpatient (REF) | payer OTHER ==
[2020-05-20 14:58] LABS: CREATININE, URINE 64.6 MG/DL; MAU/CREAT RATIO 4659.4 MCG/MG (0.0-30.0)
== END ==
LOC: M LAB REF 13:31
PROVIDERS: ATTEND Nurse Practitioner Family
DX: E11.65 Type 2 diabetes mellitus with hyperglycemia (principal)

== ENCOUNTER → 2021-04-17 | Outpatient (CLI) | payer OTHER ==
[~2021-04-17] MED LIST changes: -DOCU-129 PO; +DOCU-153 PO; -DOXY100C PO; +DOXY100C3 PO; -GLYB5TA PO; +GLYB5TAB6 PO
[2021-04-17 12:12] LABS: BASO % 0.5 % (0.0-1.0); EOS # 0.2 10^3/uL (0.0-0.5); EOS % 2.6 % (0.0-3.0); HEMATOCRIT 38.9 % (36.0-47.0); HEMOGLOBIN 12.3 g/dl (12.0-15.5); LYMPH # 2.3 10^3/uL (1.5-5.0); LYMPH % 31.7 % (24.0-44.0); MEAN CORPUSCULAR HEMOGLOBIN 27.5 pg (27.0-33.0); MEAN CORPUSCULAR HGB CONC 31.6 g/dl (32.0-36.5); MONO # 0.5 10^3/uL (0.0-0.8); MONO % 7.3 % (2.0-8.0); NEUTROPHILS # 4.2 10^3/uL (1.5-8.5); NEUTROPHILS % 57.4 % (36.0-66.0); PLATELET COUNT, AUTOMATED 256 10^3/uL (150-450); RED BLOOD COUNT 4.47 10^6/uL (4.00-5.40); WHITE BLOOD COUNT 7.4 10^3/uL (4.0-10.0)
[2021-04-17 12:50] LABS: ALBUMIN 3.2 GM/DL (3.2-5.2); ALT/SGPT 18 U/L (12-78); BILIRUBIN,TOTAL 0.3 MG/DL (0.2-1.0); BLOOD UREA NITROGEN 45 MG/DL (7-18); CALCIUM LEVEL 9.6 MG/DL (8.8-10.2); CARBON DIOXIDE LEVEL 32 MEQ/L (21-32); CHLORIDE LEVEL 104 MEQ/L (98-107); CHOLESTEROL LEVEL 326 MG/DL (<200); CHOLESTEROL RISK RATIO 7.086 (<5); CREATININE FOR GFR 1.22 MG/DL (0.55-1.30); FREE T4 1.07 NG/DL (0.76-1.46); GLOMERULAR FILTRATION RATE 47.1 (>45); GLUCOSE, FASTING 141 MG/DL (70-100); HDL CHOLESTEROL 46 MG/DL (>40); NON-HDL-C 280 MG/DL; POTASSIUM SERUM 4.7 MEQ/L (3.5-5.1); SODIUM LEVEL 142 MEQ/L (136-145); TOTAL PROTEIN 7.2 GM/DL (6.4-8.2); TRIGLYCERIDES LEVEL 431 MG/DL (<150)
[2021-04-17 12:56] LABS: HEMOGLOBIN A1c 6.9 %
== END ==
LOC: M LAB 11:20
PROVIDERS: ATTEND Family Medicine
DX: R94.6 Abnormal results of thyroid function studies (principal); E11.65 Type 2 diabetes mellitus with hyperglycemia

== ENCOUNTER → 2021-07-24 | Outpatient (CLI) | payer OTHER ==
[~2021-07-24] MED LIST changes: +PEPT262C2 PO; +SERT25TA21 PO; +TUJEO SQ
== END ==
LOC: M LABSMTC 10:57
PROVIDERS: ATTEND Anesthesiology
DX: Z01.818 Encounter for other preprocedural examination (principal); Z11.52 Encounter for screening for COVID-19

== ENCOUNTER → 2021-09-05 | Outpatient (CLI) | payer OTHER ==
[~2021-09-05] MED LIST changes: -LISI20TA20 PO; +LISI20TA37 PO
[2021-09-05 16:28] LABS: HEMOGLOBIN A1c 7.7 %
[2021-09-05 16:34] LABS: ALBUMIN 3.4 GM/DL (3.2-5.2); ALT/SGPT 23 U/L (12-78); BILIRUBIN,TOTAL 0.2 MG/DL (0.2-1.0); BLOOD UREA NITROGEN 41 MG/DL (7-18); CALCIUM LEVEL 9.6 MG/DL (8.8-10.2); CARBON DIOXIDE LEVEL 32 MEQ/L (21-32); CHLORIDE LEVEL 102 MEQ/L (98-107); CHOLESTEROL LEVEL 331 MG/DL (<200); CHOLESTEROL RISK RATIO 6.895 (<5); CREATININE FOR GFR 0.92 MG/DL (0.55-1.30); GLOMERULAR FILTRATION RATE > 60.0 (>45); GLUCOSE, FASTING 82 MG/DL (70-100); HDL CHOLESTEROL 48 MG/DL (>40); NON-HDL-C 283 MG/DL; POTASSIUM SERUM 4.3 MEQ/L (3.5-5.1); SODIUM LEVEL 140 MEQ/L (136-145); TOTAL PROTEIN 7.1 GM/DL (6.4-8.2); TRIGLYCERIDES LEVEL 483 MG/DL (<150)
== END ==
LOC: M WUC 14:02
PROVIDERS: ATTEND Nurse Practitioner Family
DX: E78.2 Mixed hyperlipidemia (principal); E11.65 Type 2 diabetes mellitus with hyperglycemia